=== PATIENT | female | born 1950 | race Caucasian/White ===

== ENCOUNTER 2017-03-17 19:32 | Emergency (ER) | payer OTHER, MEDICAID ==
[~2017-03-17] VITALS: Ht 157.5 cm; Wt 72.6 kg
[2017-03-17 21:53] LABS: Basophils # (auto) 0.1 uL; Basophils % (auto) 1.2 % (0.0-2.0); DEFINITIVE VIEW TRANSMISSION; Eosinophils # (auto) 0.7 uL; Eosinophils % (auto) 5.7 % (0.0-7.0); Hematocrit 37.8 % (36.0-46.0); Hemoglobin 12.4 g/dL (12.2-16.2); Lymphocytes # (auto) 2.3 uL; Lymphocytes % (auto) 18.6 % (10.0-50.0); Mean Corpuscular Hemoglobin 27.9 pg (28.0-32.0); Mean Corpuscular Hgb Conc. 32.8 g/dL (32.0-36.0); Mean Corpuscular Volume 85.3 fL (80.0-100.0); Mean Platelet Volume 9.1 fL (7.4-10.4); Monocytes # (auto) 1.3 uL; Neutrophils # (auto) 7.8 uL; Neutrophils % (auto) 63.5 % (37.0-80.0); Platelet Count (auto) 353 10^3/uL (140-450); Red Cell Distribution Width 16.2 % (11.6-16.0); White Blood Cell 12.3 10^3/uL (4.4-10.8)
[2017-03-17 22:14] LABS: INR 0.95 (0.9-1.15); Partial Thromboplastin Time 26.6 sec (22.64-33.71); Prothrombin Time 10.4 sec (9.37-12.3)
[2017-03-17 22:23] LABS: B-Type Natriuretic Peptide 6.27 pg/mL (0-100)
[2017-03-17 22:27] LABS: Temperature: 23.7 C (20.0-25.0)
[2017-03-17 22:36] LABS: Anion Gap 10 (5-15); BUN/Creatinine Ratio 33.7; Blood Urea Nitrogen 34 mg/dL (7-18); Chloride 83 mmol/L (98-107); Glucose 114 mg/dL (74-106); Sodium 134 mmol/L (136-145)
[2017-03-17 22:37] LABS: Alkaline Phosphatase 191 U/L (45-117); Aspartate Aminotransferase 21 U/L (15-37); Bilirubin, Total 0.4 mg/dL (0.2-1.0); Calcium 9.6 mg/dL (8.5-10.1); GFR African American 70 mL/min; GFR Non-African American 58 mL/min; Magnesium 2.3 mg/dL (1.6-2.6); Total Protein 7.6 g/dL (6.4-8.2)
[2017-03-17 22:49] LABS: Carbon Dioxide 41 mmol/L (21-32); Potassium 2.3 mmol/L (3.5-5.1)
[2017-03-17] MEDS ORDERED: ACETAMINOPHEN 325 MG TAB PO ONE (23:00)
[2017-03-18] MEDS ORDERED: POTASSIUM CHL 20 Meq TABLET PO ONE
[2017-03-18 01:58] VITALS: BP 130/84
== END 2017-03-18 02:00 | disposition home or self-care (01) ==
LOC: ER 19:32
DX: E87.6 Hypokalemia (principal); D72.829 Elevated white blood cell count, unspecified; J44.9 Chronic obstructive pulmonary disease, unspecified; J45.909 Unspecified asthma, uncomplicated; E78.5 Hyperlipidemia, unspecified; Z87.440 Personal history of urinary (tract) infections
CPT/HCPCS: 36415; 71010; 80053; 83735; 83880; 84443; 84484; 85025; 85610; 85730; 93005

== ENCOUNTER 2017-04-20 21:10 | Emergency (ER) | payer MEDICAID, OTHER ==
[~2017-04-20] VITALS: Ht 160 cm; Wt 61.2 kg
[2017-04-20 22:19] LABS: Basophils # (auto) 0.1 uL; Basophils % (auto) 0.9 % (0.0-2.0); CONDITION Y; Eosinophils # (auto) 0.1 uL; Eosinophils % (auto) 0.9 % (0.0-7.0); Hemoglobin 11.4 g/dL (12.2-16.2); Lymphocytes # (auto) 1.2 uL; Mean Corpuscular Hemoglobin 28.8 pg (28.0-32.0); Mean Corpuscular Hgb Conc. 33.6 g/dL (32.0-36.0); Mean Corpuscular Volume 85.8 fL (80.0-100.0); Mean Platelet Volume 8.5 fL (7.4-10.4); Monocytes # (auto) 1.1 uL; Monocytes % (auto) 6.9 % (0.0-12.0); Neutrophils # (auto) 12.9 uL; Neutrophils % (auto) 83.3 % (37.0-80.0); Platelet Count (auto) 404 10^3/uL (140-450); Red Cell Distribution Width 15.8 % (11.6-16.0); White Blood Cell 15.5 10^3/uL (4.4-10.8)
[2017-04-20 22:27] LABS: Albumin 3.6 g/dL (3.4-5.0); BUN/Creatinine Ratio 20.5; Bilirubin, Total 0.6 mg/dL (0.2-1.0); Calcium 8.5 mg/dL (8.5-10.1)
[2017-04-20 22:36] LABS: Potassium 2.3 mmol/L (3.5-5.1)
[2017-04-20] MEDS ORDERED: POTASSIUM CHL 20 Meq TABLET PO ONE (23:30)
[2017-04-20] MEDS ORDERED: SODIUM CHLORIDE 0.9% 1,000 ML IV ONE (23:45)
[2017-04-21] MEDS ORDERED: ONDANSETRON HCL 4 MG/2 ML VIAL IV ONE (01:30)
[2017-04-21] MEDS ORDERED: cefTRIAXone 1GM/50ML D5W 50 ML IV ONE (02:00)
[2017-04-21] MEDS ORDERED: AZITHROMYCIN 500MG/D5W 250ML 250 ML IV ONE (02:15)
[2017-04-21] MEDS ORDERED: ALBUTEROL SULF 2.5 MG/0.5ML(0.5%) NEB SOLN NEB ONE (02:15)
[2017-04-21] MEDS ORDERED: IPRATROPIUM BROM 0.5 MG/2.5ML INH SOL NEB ONE (02:15)
[2017-04-21] MEDS ORDERED: SOD CHL 0.45% WITH 20MEQ KCL 1,000 ML IV ONE (02:15)
[2017-04-21] MEDS ORDERED: methylPREDNISolone SOD SUCC 125 MG/2 ML VL IV ONE (02:15)
[2017-04-21 03:03] LABS: Amylase 22 U/L (25-115)
[2017-04-21 05:08] LABS: Albumin 3.3 g/dL (3.4-5.0); BUN/Creatinine Ratio 19.2; Calcium 7.9 mg/dL (8.5-10.1)
[2017-04-21 05:10] LABS: Bilirubin, Total 0.6 mg/dL (0.2-1.0); Total Protein 6.7 g/dL (6.4-8.2)
[2017-04-21] MEDS ORDERED: HYDROcodone-ACET 5/325MG TAB PO ONE (05:15)
[2017-04-21 05:48] LABS: Potassium 2.3 mmol/L (3.5-5.1)
[2017-04-21] MEDS ORDERED: POTASSIUM CHL 20 Meq TABLET PO ONE (06:45)
[2017-04-21 07:36] LABS: Urine Bilirubin Negative (Negative); Urine Glucose Normal (Normal); Urine Ketone Negative (Negative); Urine Nitrite Negative (Negative); Urine RBC 638 /hpf (0 - 4); Urine Squamous Epithelial Cell FEW /hpf (<5); Urine Urobilinogen Normal (Negative)
[2017-04-21 07:37] LABS: Urine Blood 2+ /uL (Negative); Urine Color Orange (Yellow)
[2017-04-21] MEDS ORDERED: POTASSIUM CHL 10% (20 MEQ/15ML) ORAL SOLN ONE (07:40)
[2017-04-21] MEDS ORDERED: POTASSIUM CHL 10% (20 MEQ/15ML) ORAL SOLN PO ONE (07:45)
[2017-04-21] MEDS ORDERED: LORazepam 0.5 MG TAB ONE (09:25)
[2017-04-21] MEDS ORDERED: LORazepam 0.5 MG TAB PO ONE (09:45)
[2017-04-21 10:13] VITALS: BP 109/65
== END 2017-04-21 10:37 | disposition short-term general hospital (02) ==
LOC: EDBD 21:10 → ER 21:12
DX: J18.1 Lobar pneumonia, unspecified organism (principal); E87.6 Hypokalemia; R53.1 Weakness; D72.829 Elevated white blood cell count, unspecified; N17.9 Acute kidney failure, unspecified; J44.9 Chronic obstructive pulmonary disease, unspecified; E78.5 Hyperlipidemia, unspecified; Z87.440 Personal history of urinary (tract) infections
CPT/HCPCS: 36415; 71010; 74176; 80053; 81001; 82150; 83605; 83690; 85025; 87040; 93005; 94640; 94761; 96361; 96365; 96366; 96367; 96368; 96375; 99285; J0456; J0696; J2405; J2930; J7030

== ENCOUNTER 2018-07-04 13:04 | Emergency (ER) | payer OTHER ==
[2018-07-04] MEDS ORDERED: EPINEPHrine HCL 1 MG/10 ML SYRG IV ONE ×3 (13:08→13:45)
[2018-07-04] MEDS ORDERED: SODIUM BICARBONATE 8.4% INJ 50ML SYRINGE IV ONE (13:08)
[2018-07-04] MEDS ORDERED: CALCIUM CHLOR(10%) 100MG/ML 10ML SYRINGE IV ONE (13:08)
[2018-07-04] MEDS ORDERED: DEXTROSE (50%) 50ML SYRG IV ONE (13:08)
[2018-07-04] MEDS ORDERED: EPINEPHrine HCL 1 MG/10 ML SYRG ONE (13:15)
== END 2018-07-04 18:54 | disposition expired ==
LOC: EDUNIT# 13:04 → ER 13:07
DX: I46.9 Cardiac arrest, cause unspecified (principal); J44.9 Chronic obstructive pulmonary disease, unspecified; E78.5 Hyperlipidemia, unspecified; Z87.440 Personal history of urinary (tract) infections
CPT/HCPCS: 31500; 92950